=== PATIENT | male | born 1935 | race Caucasian/White ===

== ENCOUNTER → 2017-02-25 | Outpatient (CLI) | payer MEDICARE, OTHER ==
--- NOTE | 2017-03-16 15:34 | ENG ---
ELECTRONYSTAGMOGRAM REPORT INDICATION FOR EXAMINATION: A 81-year-old presented with intermittent vertigo. CALORIC TEST: No unilateral weakness. No directional preponderance. FFS: Negative. GAZE TEST: Negative. SINUSOIDAL TRACKING TEST: No breakups. OKN TEST: Negative. POSITIONAL NYSTAGMUS: SUPINE: Negative. RIGHT LATERAL: Negative. LEFT LATERAL: Negative. AKIL HALLPIKE TEST: Negative. CONCLUSION: Normal electronystagmogram. MMODL / IJN: [id number] /
== END | disposition home or self-care (01) ==
LOC: NEUROMAIN 10:36
PROVIDERS: ATTEND Psychiatry & Neurology Neurology
DX: H81.10 Benign paroxysmal vertigo, unspecified ear (principal)
CPT/HCPCS: 92537; 92540

== ENCOUNTER 2021-02-28 11:07 | Emergency (ER) | payer MEDICARE, OTHER ==
[2021-02-28 11:21] VITALS: RESP 18; TEMP 98
[2021-02-28 12:12] LABS: Basophils % (A) 0 %; Eosinophils # (A) 0.1 k/uL (0-0.7); Eosinophils % (A) 2 %; HCT 37.8 % (39.0-53.0); HGB 12.5 gm/dL (13.0-17.5); Lymphocytes # (A) 0.7 k/uL (1.0-4.8); Lymphocytes % (A) 12 %; MCH 30.9 pg (25.0-35.0); MCHC 33.1 g/dL (31.0-37.0); MCV 93.4 fL (80.0-100.0); Mean Platelet Volume 7.5; Monocytes # (A) 0.4 k/uL (0-1.0); Monocytes % (A) 7 %; Neutrophils # (A) 4.5 k/uL (1.3-7.7); Neutrophils % (A) 78 %; Platelet Count 235 k/uL (150-450); RBC 4.05 m/uL (4.30-5.90); RDW 14.3 % (11.5-15.5); WBC 5.7 k/uL (3.8-10.6)
[2021-02-28 12:33] LABS: INR 2.9 (<1.2); Partial Thromboplastin Time 34.1 sec (22.0-30.0); Prothrombin Time 27.7 sec (9.0-12.0)
[2021-02-28 12:39] LABS: ALT 14 U/L (4-49); AST 26 U/L (17-59); African American GFR (CKD) >90 (>60 ml/min/1.73 sqM); Albumin 3.8 g/dL (3.5-5.0); Alkaline Phosphatase 88 U/L (38-126); Anion Gap 7 mmol/L; Blood Urea Nitrogen 21 mg/dL (9-20); Calcium 9.1 mg/dL (8.4-10.2); Carbon Dioxide 26 mmol/L (22-30); Chloride 102 mmol/L (98-107); Glucose 106 mg/dL (74-99); Non-African American GFR(CKD) 90 (>60 ml/min/1.73 sqM); Potassium 4.5 mmol/L (3.5-5.1); Sodium 135 mmol/L (137-145); Total Bilirubin 0.3 mg/dL (0.2-1.3)
--- NOTE | 2021-02-28 13:32 | XR ---
AP pelvis HISTORY: Trauma and pain Single frontal view of the pelvis Bone mineralization is reduced. Joint spaces and alignment are maintained. Probable prostate seeds ar e present over the midline. Degenerative disc changes are present in the visualized spine. Vascular c alcifications are noted incidentally. IMPRESSION: No acute fracture or dislocation is evident. Follow-up as indicated.
--- NOTE | 2021-02-28 13:35 | XR ---
Lumbar spine HISTORY: Trauma and pain 3 views the lumbar spine There is a slight spinal curvature convex right centered at L3. There is multilevel spondylosis. Loss of disc height is greatest at L4-5 and L5-S1, there is associated vacuum phenomenon. Bone mineraliza tion is reduced. Sclerosis is present in the posterior elements of the lumbar spine consistent with f acet arthropathy. Probable interstitial changes present at the lung bases. Superior aspect of S1 show s some remodeling, questionable lucency seen anteriorly may be related to hypertrophic change, diffic ult to exclude a fracture. Lumbar vertebral bodies show preserved height. Atherosclerotic calcificati ons are present involving the aorta iliac distribution. IMPRESSION: Difficult to exclude fracture at S1 although findings may be due to hypertrophic changes. There are degenerative disc changes, osteopenia, facet arthropathy.
--- NOTE | 2021-02-28 13:43 | ED ---
Male Urogenital HPI - General Source: patient, family, RN notes reviewed Mode of arrival: wheelchair Limitations: no limitations <Herman Galloway - Last Filed: 02/28/21 15:18> <Mak Conway - Last Filed: 02/28/21 16:16> - General Chief complaint: Urogenital Stated complaint: Blood in urine Time Seen by Provider: 02/28/21 11:36 - History of Present Illness Initial comments: Patient is an 85-year-old male that presents to emergency department complaining of hematuria. He notes that he fell last night on his butt. Having some minor but pain and bruising to his chest. He notes that the only issue of concern was the blood in his urine. He notes he does have a history of prostate cancer and was unable to get in with Dr. Marrero. He denied any other symptoms or complaints at this time. He was otherwise a well-appearing 85-year-old male in no apparent distress or pain. He denied any chest pain shortness of breath headache nausea vomiting diarrhea constipation fever fatigue chills. (Barbara diana,Herman) - Related Data Home Medications Medication Instructions Recorded Confirmed Acetaminophen Tab [Tylenol Tab] 500 mg PO BID 02/28/21 02/28/21 Donepezil [Aricept] 10 mg PO HS 02/28/21 02/28/21 Gabapentin [Neurontin] 300 mg PO HS 02/28/21 02/28/21 Metoprolol Succinate [Toprol XL] 25 mg PO DAILY 02/28/21 02/28/21 Pravastatin Sodium [Pravachol] 10 mg PO HS 02/28/21 02/28/21 Tamsulosin HCl [Flomax] 0.4 mg PO DAILY 02/28/21 02/28/21 Warfarin [Coumadin] 5 mg PO SUMOTUTHSA 02/28/21 02/28/21 Warfarin [Coumadin] 7.5 mg PO WEFR 02/28/21 02/28/21 amLODIPine BESYLATE/BENAZEPRIL 1 cap PO DAILY 02/28/21 02/28/21 [amLODIPine BESYLATE/BENAZEPRIL 10-20 MG] hydroCHLOROthiazide [Hydrodiuril] 25 mg PO DAILY 02/28/21 02/28/21 Allergies Allergy/AdvReac Type Severity Reaction Status Date / Time No Known Allergies Allergy Verified 02/28/21 12:23 Review of Systems ROS Other: All systems not noted in ROS Statement are negative. <Herman Galloway - Last Filed: 02/28/21 15:18> ROS Other: All systems not noted in ROS Statement are negative. <Mak Conway - Last Filed: 02/28/21 16:16> ROS Statement: Those systems with pertinent positive or pertinent negative responses have been documented in the HPI. Past Medical History Past Medical History: Cancer, Hyperlipidemia Additional Past Medical History / Comment(s): prostate, cardiomyopathy, basal cell carcinoma History of Any Multi-Drug Resistant Organisms: None Reported Past Surgical History: Appendectomy Additional Past Surgical History / Comment(s): mitral valve, cochlear implant, diverticulitis, retinal detachment, cataract Past Psychological History: No Psychological Hx Reported Smoking Status: Never smoker Past Alcohol Use History: None Reported Past Drug Use History: None Reported <Herman Galloway - Last Filed: 02/28/21 15:18> General Exam Limitations: no limitations General appearance: alert, in no apparent distress Head exam: Present: atraumatic, normocephalic, normal inspection Eye exam: Present: normal appearance, PERRL, EOMI. Absent: scleral icterus, conjunctival injection, periorbital swelling Neck exam: Present: normal inspection Respiratory exam: Present: normal lung sounds bilaterally. Absent: respiratory distress, wheezes, rales, rhonchi, stridor Cardiovascular Exam: Present: regular rate, normal rhythm, normal heart sounds. Absent: systolic murmur, diastolic murmur, rubs, gallop, clicks GI/Abdominal exam: Present: soft, normal bowel sounds. Absent: distended, tenderness, guarding, rebound, rigid Extremities exam: Present: normal inspection, full ROM, normal capillary refill. Absent: tenderness, pedal edema, joint swelling, calf tenderness Back exam: Present: normal inspection, full ROM Neurological exam: Present: alert, oriented X3 Psychiatric exam: Present: normal affect, normal mood Skin exam: Present: warm, dry, intact, normal color. Absent: rash <Herman Galloway - Last Filed: 02/28/21 15:18> Course Vital Signs 02/28/21 02/28/21 02/28/21 11:14 12:21 13:00 Temperature 98 F Pulse Rate 62 65 65 Respiratory 18 18 18 Rate Blood Pressure 109/64 126/86 126/86 O2 Sat by Pulse 97 95 95 Oximetry Medical Decision Making - Lab Data Result diagrams: 02/28/21 11:51 02/28/21 11:51 - Radiology Data Radiology results: report reviewed, image reviewed <Herman Galloway - Last Filed: 02/28/21 15:18> - Lab Data Result diagrams: 02/28/21 11:51 02/28/21 11:51 <Mak Conway - Last Filed: 02/28/21 16:16> - Medical Decision Making 85-year-old male that fell last night after losing his balance complaining of minor hematuria, history of prostate cancer. Labs, lumbar spine x-ray, x-ray of pelvis, ordered. Labs unremarkable. Urinalysis shows large quantity red blood cells greater than 182. CT of the sacrum ordered. (Herman Galloway) Patient care is signed off to me by PASCUAL Garrison. I personally evaluated the patient, patient presented for hematuria. States he fell several days ago and was concerned this could be due to the fall. States he has pain near the left lumbar region but appears to be rather minimal. Seems to be exacerbated with movement. He denies any increased urgency or frequency or dysuria. States she has difficulty with balance due to arthritic changes in the spine. He sees Dr. Green for his lumbar issues along with a chiropractor. He denies any penile discharge, testicular swelling or abdominal pain. Denies any fevers or chills. Patient is on Coumadin and he has history of prostate cancer. He sees on regular basis. No significant tenderness over the sacrum or lower lumbar region to palpation. CBC reveals mild anemia with a hemoglobin of 12. INR is 2.9. Renal function within normal limits. UA shows gross hematuria. 19 white blood cells. No leukocyte esterase reported. Urine culture pending. Pelvic x-rays unremarkable. Lumbar spine x-ray reveals the possibility for an S1 fracture although it may be difficult to exclude. CT of the sacrum was obtained which shows a subacute versus a healing old sacral fracture. Clinically the patient does not have any significant tenderness over the suspect the region of a fracture. I advised the patient to follow-up with his urologist regarding the hematuria. Return parameters with low discussed with patient and the were understanding and agreeable. Case discussed with (Christos Conwayo) - Lab Data Lab Results 02/28/21 02/28/21 02/28/21 Range/Units 11:51 11:51 11:51 WBC 5.7 (3.8-10.6) k/uL RBC 4.05 L (4.30-5.90) m/uL Hgb 12.5 L (13.0-17.5) gm/dL Hct 37.8 L (39.0-53.0) % MCV 93.4 (80.0-100.0) fL MCH 30.9 (25.0-35.0) pg MCHC 33.1 (31.0-37.0) g/dL RDW 14.3 (11.5-15.5) % Plt Count 235 (150-450) k/uL MPV 7.5 Neutrophils % 78 % Lymphocytes % 12 % Monocytes % 7 % Eosinophils % 2 % Basophils % 0 % Neutrophils # 4.5 (1.3-7.7) k/uL Lymphocytes # 0.7 L (1.0-4.8) k/uL Monocytes # 0.4 (0-1.0) k/uL Eosinophils # 0.1 (0-0.7) k/uL Basophils # 0.0 (0-0.2) k/uL PT 27.7 H (9.0-12.0) sec INR 2.9 H (<1.2) APTT 34.1 H (22.0-30.0) sec Sodium (137-145) mmol/L Potassium (3.5-5.1) mmol/L Chloride (98-107) mmol/L Carbon Dioxide (22-30) mmol/L Anion Gap mmol/L BUN (9-20) mg/dL Creatinine (0.66-1.25) mg/dL Est GFR (CKD-EPI)AfAm (>60 ml/min/1.73 sqM) Est GFR (CKD-EPI)NonAf (>60 ml/min/1.73 sqM) Glucose (74-99) mg/dL Calcium (8.4-10.2) mg/dL Total Bilirubin (0.2-1.3) mg/dL AST (17-59) U/L ALT (4-49) U/L Alkaline Phosphatase (38-126) U/L Total Protein (6.3-8.2) g/dL Albumin (3.5-5.0) g/dL Urine Color Red Urine Appearance Bloody (Clear) Urine RBC >182 H (0-5) /hpf Urine WBC 19 H (0-5) /hpf 02/28/21 Range/Units 11:51 WBC (3.8-10.6) k/uL RBC (4.30-5.90) m/uL Hgb (13.0-17.5) gm/dL Hct (39.0-53.0) % MCV (80.0-100.0) fL MCH (25.0-35.0) pg MCHC (31.0-37.0) g/dL RDW (11.5-15.5) % Plt Count (150-450) k/uL MPV Neutrophils % % Lymphocytes % % Monocytes % % Eosinophils % % Basophils % % Neutrophils # (1.3-7.7) k/uL Lymphocytes # (1.0-4.8) k/uL Monocytes # (0-1.0) k/uL Eosinophils # (0-0.7) k/uL Basophils # (0-0.2) k/uL PT (9.0-12.0) sec INR (<1.2) APTT (22.0-30.0) sec Sodium 135 L (137-145) mmol/L Potassium 4.5 (3.5-5.1) mmol/L Chloride 102 (98-107) mmol/L Carbon Dioxide 26 (22-30) mmol/L Anion Gap 7 mmol/L BUN 21 H (9-20) mg/dL Creatinine 0.66 (0.66-1.25) mg/dL Est GFR (CKD-EPI)AfAm >90 (>60 ml/min/1.73 sqM) Est GFR (CKD-EPI)NonAf 90 (>60 ml/min/1.73 sqM) Glucose 106 H (74-99) mg/dL Calcium 9.1 (8.4-10.2) mg/dL Total Bilirubin 0.3 (0.2-1.3) mg/dL AST 26 (17-59) U/L ALT 14 (4-49) U/L Alkaline Phosphatase 88 (38-126) U/L Total Protein 6.0 L (6.3-8.2) g/dL Albumin 3.8 (3.5-5.0) g/dL Urine Color Urine Appearance (Clear) Urine RBC (0-5) /hpf Urine WBC (0-5) /hpf - Radiology Data Lumbar spine x-ray: Difficult to exclude fracture at S1 although findings may be due to hypertrophic changes. There are degenerative disc changes, osteopenia facet arthropathy. Pelvis x-ray: No acute fracture dislocation is evident. Follow-up as indicated. (Herman Galloway) Disposition <Herman Galloway - Last Filed: 02/28/21 15:18> Is patient prescribed a controlled substance at d/c from ED?: No Time of Disposition: 16:16 <Mak Conway - Last Filed: 02/28/21 16:16> Clinical Impression: Hematuria, Fall Disposition: HOME SELF-CARE Condition: Stable Instructions (If sedation given, give patient instructions): Hematuria (ED) Additional Instructions: Follow-up with Dr. Cormier. Return to emergency department if symptoms worsen. Referrals: Marie Blevins MD [Primary Care Provider] - 1-2 days
[2021-02-28 14:17] LABS: RBC,Urine >182 /hpf (0-5); WBC,Urine 19 /hpf (0-5)
[2021-02-28 14:18] LABS: Appearance,Urine Bloody (Clear); Color,Urine Red
--- NOTE | 2021-02-28 15:27 | CT ---
EXAMINATION TYPE: CT sacrum wo con DATE OF EXAM: 02/28/2021 COMPARISON: Lumbar spine x-ray and pelvic x-ray earlier today. CT abdomen and pelvis 2014. HISTORY: Fall couple days ago, hematuria. CT DLP: 307.2 mGycm Automated exposure control for dose reduction was used. FINDINGS: There is irregular linear lucency with more prominent sclerosis through the upper sacrum greater left of midline with some right-sided involvement. There is some impaction and slight posterior displacem ent of the distal sacrum at the S1 level at site of fracture seen best on sagittal images. Uncertain if this is related to trauma or fall injury a few days ago versus slightly older injury as there is m ore prominent sclerosis than suspected for injury in last few days. Sacroiliac joints are maintained. Remainder visualized pelvis is intact. Sigmoid colonic diverticulos is is present. Mild to moderately distended bladder is seen with left-sided diverticulum coronal imag e 1. There are gold therapy seeds now present in the prostate gland. IMPRESSION: Suspected subacute or healing S1 sacral fracture possible insufficiency fracture or relat ed to trauma suspected a few weeks in age.
[2021-02-28 16:52] VITALS: BP 127/73; PULSE 69
== END 2021-02-28 16:55 | disposition home or self-care (01) ==
LOC: EC 11:07
DX: R31.9 Hematuria, unspecified (principal); R07.9 Chest pain, unspecified; E78.5 Hyperlipidemia, unspecified; Z79.899 Other long term (current) drug therapy; W01.0XXA Fall on same level from slipping, tripping and stumbling without subsequent striking against object, initial encounter
CPT/HCPCS: 36415; 72100; 72170; 72192; 80053; 81001; 85025; 85610; 85730; 87086; 99284

== ENCOUNTER → 2021-03-22 | Outpatient (CLI) | payer MEDICARE, OTHER ==
[2021-03-22 16:41] LABS: African American GFR (CKD) >90 (>60 ml/min/1.73 sqM); Blood Urea Nitrogen 18 mg/dL (9-20); Non-African American GFR(CKD) 90 (>60 ml/min/1.73 sqM)
--- NOTE | 2021-03-23 07:18 | CT ---
EXAMINATION TYPE: CT abdomen pelvis w con DATE OF EXAM: 03/22/2021 COMPARISON: 01/09/2015 HISTORY: Recent fall, hematuria. Hx prostate ca CT DLP: 759.30 mGycm CONTRAST: CT scan of the abdomen and pelvis is performed with Oral Contrast and with IV Contrast, patient injec altagracia with 100 mL of Isovue 300. FINDINGS: LUNG BASES-: No visible nodule. No infiltrate. There is evidence of cardiomegaly. LIVER/GB: No calcified gallstones. No space occupying hepatic lesion. Biliary tree is of normal ca liber. PANCREAS: No inflammation. No distinct mass. SPLEEN: No splenic enlargement. No lesion seen. ADRENALS: No nodule. No thickening. KIDNEYS/BLADDER: No traumatic injury visualized to the kidneys. No hydronephrosis. No nephrolithias is. No distinct renal mass. Mild urinary bladder wall thickening could reflect underlying cystitis. Anterolateral and to the left diverticulum of the urinary bladder. BOWEL: Normal appendix. Normal bowel caliber. No inflammation. GENITAL ORGANS: Prostate gland enlargement. LYMPH NODES: No greater than 1cm abdominal or pelvic lymph nodes are appreciated. AORTA: No significant abnormality. OSSEOUS STRUCTURES: No significant abnormality is seen. OTHER: No significant additional abnormality is seen. IMPRESSION: 1. No traumatic injury visualized to the kidneys. 2. Mild urinary bladder wall thickening could reflect underlying cystitis. Anterolateral and to the l eft diverticulum of the urinary bladder.
== END | disposition home or self-care (01) ==
LOC: RADCTMAIN 14:59
PROVIDERS: ATTEND Urology
DX: N32.3 Diverticulum of bladder (principal)
CPT/HCPCS: 82565; 84520; 74177; 36415; Q9967

== ENCOUNTER → 2021-11-28 | Outpatient (CLI) | payer MEDICARE, OTHER ==
[2021-11-28 11:21] VITALS: BP 142/70; PULSE 51; RESP 18; TEMP 97.8
--- NOTE | 2021-11-28 11:27 | P.CON ---
Consult Note - . Consult date: 11/28/21 Assessment/Plan:: HISTORY OF PRESENT ILLNESS: 86 yr old male as a referral from Dr. Jose presents today with severe and chronic lower back pain 10 years secondary to L5-S1 vacuum phenomenon and DDD for evaluation. He states his pain is currently at 1 out of 10 in intensity, localized to the lower aspect of his lumbar spine, sharp, shooting, achy in character with radiation of pain into the hips bilaterally, lower extremities bilaterally and feet bilaterally. In is provoked with rapid twisting and bending. Pain is relieved with medications (Aleve, Tylenol OTC), heat, physical therapy in October 2021, chiropractic treatments once a week, daily home exercise regimen, use of a quad cane for ambulation, repositioning and rest. Past Medical History: Prostate Cancer, BCC, Hyperlipidemia, Cardiomyopathy, Hx of Diverticulitis Past Surgical History: Appendectomy, MV Replacement, Cochlear implant, Retinal detachment, Cataract resection Social History: Never smoker, No ETOH abuse, No illicit drug use Family History: Non contributory All: NKDA Meds: See list REVIEW OF ORGAN SYSTEMS: CONSTITUTIONAL: No fevers or chills. No recent weight loss. HEENT: No visual acuity loss, eye pain, difficulties with hearing. No nosebleeds. No difficulty swallowing. RESPIRATORY: Denies any troubles with breathing or dyspnea on exertion. CARDIOVASCULAR: Denies any chest pain, palpitations, or recent heart attacks. GASTROINTESTINAL: Denies fatty food intolerance. Has change in bowel habits and gas bloat. GENITOURINARY: Denies any blood in urine. Has increased urinary frequency. NEUROLOGICAL: + numbness and tingling along the distal extremities. No seizure disorders or headaches. MUSCULOSKELETAL: + back pain SKIN: No skin cancer. No rash. PSYCHIATRIC: Denies current depression or suicidal thoughts. ENDOCRINE: Denies current thyroid disorders. Denies any blood sugar glucose intolerance. HEME/LYMPHATIC: Denies any lumps and bumps around the neck. History of deep venous thrombosis. ALLERGY/IMMUNOLOGY: No immunoglobulin therapy. No immune deficiencies. BREAST: Denies current breast lumps, pain or nipple discharge. Physical Examinations : Constitutional : Cooperative , not in acute distress . HEENT: Neck supple. No Lymphadenopathy. Normal thyroid size . Eyes no ptosis , no icterus, no photophobia . Hearing intact. Normal oropharynx. No Thrush. Respiratory : Chest clear to auscultations bilaterally. No wheezing. No rhonchi. Cardiovascular : Regular rate and rhythm , S1 / S2. No S3 . No S4. Gastrointestinal : Abdomen soft. No tenderness. Bowel sounds x 4. No organomegaly . Genitourinary : Deferred. Neurologic : Cranial nerve II to XII intact. No focal neurological deficits. Psychiatric : alert & oriented x 3. Matching mood & appropriate affect. Judgment & insight intact. Lymphatic No Lymphadenopathy. Musculoskeletal : Cervical Spine Motor strength in the deltoid and biceps: Normal right side. Normal Left side Motor strength biceps and the wrist extensors: Normal right side . Normal left side Motor strength in the triceps muscle: Normal right side. Normal left side Deep tendon reflexes: Normal at the biceps. Normal at Brachioradialis. Normal at triceps Cervical facet loading test: positive bilaterally Spurling test: positive bilaterally Neck distraction test: positive bilaterally Emanuel sign: positive bilaterally Lumbar spine Motor strength lower extremities ,thigh and legs 5/5 Right side , 5/5 Left side Deep tendon reflexes : Normal Knee Jerk. Normal Ankle Jerk Vertebral body tenderness over L5 with deep palpation while hyperextended Lumbar facet Loading Test: positive Right / positive Left Range of motion of the lumbar spine Flexion 30 degrees, extension 10 degrees Straight Leg Raise test: Left/ Right positive at degree Brayden test: positive right / positive left. Severe tenderness over the Sacroiliac joint on the Right / Left sides Gaenslen test: positive bilaterally Seated flexion test: positive bilaterally. Sacral spine : Severe tenderness over the Sacroiliac joint: right side / left side Range of motion: Flexion of the lumbar spine <60 degrees Range of motion: Extension of the lumbar spine <20 degrees Gaenslen's Test positive Victor Hugo's Test positive Brayden test: positive right side / left side Thigh Thrust Test Sacral Thrust Test Imaging: CT without contrast of the Lumbar spine from 07/09/21 reviewed Assessment/ Plan : Lumbar DDD Recommendation of LESI L5-S1. May need a series of injections, up to 3 within a six-month period for optimal pain relief. Risks, benefits of procedure discussed and patient verbalized understanding. Denies medical history of diabetes. Admits to Coumadin use. Medical clearance letter sent to Dr. Lan. All questions answered. I have spent greater than 50 minutes on patient care today. Dr Goldberg was available by phone for the evaluation of this patient. The time was used to review the medical records including relevant urine studies and Prescription history (MAPs), review of the available imaging, evaluation and examination of the patient, coordination of care with the medical staff and if applicable referring physicians, as well as creation of the medical record PQRS Measure Charge Sheet Mode of Arrival: Ambulatory, Cane - Pain Location Lower Back Non-Pharmacological Interventions: Chiropractic Treatment, Heat, Home Exercise, Inactivity, Physical Therapy, Position/Reposition, Stretching Pharmacological Interventions: PRN Medication PQRS Narrative: Blood Pressure 142/70 Pain Intensity [Lower Back] 1 Scale Used Numeric (1 - 10) Hx Alcohol Use (MH) No Home Medications: Ambulatory Orders Donepezil [Aricept] 10 mg PO HS 02/28/21 Gabapentin [Neurontin] 300 mg PO HS 02/28/21 Metoprolol Succinate [Toprol XL] 25 mg PO DAILY 02/28/21 Pravastatin Sodium [Pravachol] 10 mg PO HS 02/28/21 Tamsulosin HCl [Flomax] 0.4 mg PO DAILY 02/28/21 Warfarin [Coumadin] 5 mg PO SUMOTUWEFRSA 02/28/21 Warfarin [Coumadin] 10 mg PO TH 02/28/21 amLODIPine BESYLATE/BENAZEPRIL [amLODIPine BESYLATE/BENAZEPRIL 10-20 MG] 1 cap PO DAILY 02/28/21 hydroCHLOROthiazide [Hydrodiuril] 25 mg PO DAILY 02/28/21
== END ==
LOC: PNWHC3 10:34
PROVIDERS: ATTEND Specialist
DX: M43.16 Spondylolisthesis, lumbar region (principal); M51.36 Other intervertebral disc degeneration, lumbar region; M51.16 Intervertebral disc disorders with radiculopathy, lumbar region; E78.5 Hyperlipidemia, unspecified
CPT/HCPCS: 99211

== ENCOUNTER 2022-01-02 11:54 | Day surgery (SDC) | payer MEDICARE, OTHER ==
[2021-12-27 15:51] VITALS: BMI 25.1
[2022-01-02 13:05] VITALS: TEMP 97.8
[2022-01-02] MEDS ORDERED: LACTATED RINGERS 1,000 ML IV ONE (13:05)
[2022-01-02 13:42] LABS: INR 1.1 (<1.2); Prothrombin Time 11.7 sec (9.0-12.0)
[2022-01-02] MEDS ORDERED: IOPAMIDOL M200 10 ML VIAL ONE (13:45)
[2022-01-02] MEDS ORDERED: methylPREDNISolone ACETATE 40 MG/ML 1 ML VIAL ONE (13:45)
[2022-01-02] MEDS ORDERED: fentaNYL (PF) 50 MCG/ML 2 ML AMP ONE (13:45)
[2022-01-02] MEDS ORDERED: MIDAZOLAM 2 MG/2 ML VIAL ONE (13:45)
--- NOTE | 2022-01-02 13:56 | P.PCN ---
Date of Procedure: 01/02/22 Description of Procedure: Procedure: 1. L5-S1 Epidural steroid injection under fluoroscopic guidance # 1 , 2. Lumbar epidurogram PREOPERATIVE DIAGNOSIS: Lumbar degenerative disc disease, and Lumbar radiculopathy. POSTOPERATIVE DIAGNOSIS: Lumbar degenerative disc disease, and Lumbar radiculopathy. SURGEON: Shola Willard ANESTHESIA: Local with 1% lidocaine, and IV sedation as per anesthesia record EBL: None. Specimen removed: None Fluoroscopic image: saved to electronic medical records PROCEDURE INDICATION: The patient had history of Lumbar degenerative disc disease and Lumbar radiculopathy. Failed to conservative therapy. Presented for epidural steroid injection. PROCEDURE DESCRIPTION: The patient was seen and identified in the preoperative area. Risks, benefits, complications, and alternatives were discussed with the patient. The patient agreed to proceed with the procedure and signed the consent. IV was started, and vital signs were stable. Patient was taken to the procedure area, and time out was completed. The patient was placed in the prone position on procedure table and a pillow was placed under the abdomen to reduce lumbar lordosis. The lumbosacral area was prepped and draped in the usual sterile fashion. Critical pause was taken. Vital signs were closely monitored during the procedure. Using anterior-posterior fluoroscopy, the L5-S1 interlaminar space was identified, and skin and deeper tissues were localized with 1% lidocaine. Using anterior-posterior fluoroscopy, lateral fluoroscopy, and [id number] technique, a 20 gauge 3.5 Tuohy epidural needle entered the epidural space. After negative aspiration of CSF and blood with no paresthesias, 1 ml of [id number] contrast dye was injected and an excellent epidurogram was seen. Again after negative aspiration of CSF and blood with no paresthesias, 7 mL of block solution was injected into the epidural space. Block solution contained 40 mg of Depo-Medrol, and 6 mL of preservative-free normal saline. Needle was withdrawn intact, skin was cleansed, and bandages were applied. COMPLICATIONS: None. DISPOSITION / PLANS: The patient was placed in a supine position and transferred to the recovery area in a stable condition for observation. Patient was discharged from the recovery room after meeting discharge criteria. Home discharge instructions given to the patient by the staff. The patient was reexamined prior to discharge. The patient will schedule a follow up in the clinic in 4 weeks.
[2022-01-02] MEDS ORDERED: LACTATED RINGERS 1,000 ML IV SCH (14:00)
[2022-01-02] MEDS ORDERED: IV FLUID CONTINUATION 1,000 ML IV ONE (14:00)
[2022-01-02 14:19] VITALS: BP 124/71; PULSE 55; RESP 17
--- NOTE | 2022-01-02 14:55 | FL ---
Fluoroscopy HISTORY: Pain 6 seconds fluoroscopy time supplied to the referring clinician. 2 intraoperative C-arm images docume nt the procedure. See dictated report from anesthesia.
== END 2022-01-02 14:30 | disposition home or self-care (01) ==
LOC: ORPAIN 11:54
DX: M51.16 Intervertebral disc disorders with radiculopathy, lumbar region (principal)
CPT/HCPCS: 85610; 62323; J2250; J1030; J3010; Q9966

== ENCOUNTER → 2022-01-20 | Outpatient (CLI) | payer MEDICARE, OTHER ==
[2022-01-20 11:06] VITALS: BP 128/67; PULSE 63; RESP 16; TEMP 97.8
--- NOTE | 2022-01-20 12:45 | P.PAINPG ---
PQRS Measure Charge Sheet Comment: A 86 yr old male with a history of severe and chronic low back pain secondary to lumbar degenerative disc diseases and lumbar spondylosis with facet arthropathy presents today for evaluation s/p LESI L5-S1 #1. Pt states he received 85% pain relief x 2 weeks s/p procedure. Pain level is currently at 1-2 /10 in intensity, constant, sore in character w radiation of tingling to the feet BL. Pain is provoked by standing for periods of 15 min or more, or in AM, or by bedtime. Pain is alleviated with medications (Aleve OTC, Neurontin), injections, Pt which ended in November 2021, chiropractic treatments which ended in August 2021, use of a cane for ambulation, repositioning and rest. Interventional pain procedures completed include LESI L5-S1 x 1 Patient is currently on Aleve OTC, Neurontin by Dr Jim Patient denies any side effects of the medication(s), denies excessive drowsiness or sleepiness, denies suicidal ideation and reports that the current pain medication is helping to control the pain and improve activities of daily living. Patient denies any motor or sensory deficits. Patient denies any fever or night sweats, denies any change in the bowel movements or urination. Physical Examination: -Constitutional: Cooperative. Not in acute distress . - Neurologic: Cranial nerve II to XII intact. No focal neurological deficits. - Psychatric: Alert & oriented x 3. Matching mood & appropriate affect. Judgment and insight intact. - Musculoskeletal: Cervical spine: Muscle bulk/ tone/ strength in the bilateral upper extremities normal Vertebral body tenderness to palpation over Spurling test positive Distraction test positive Facet loading test positive Thoracic spine Muscle bulk / tone/ strength in the bilateral paraspinal muscles normal Vertebral body tender to palpation over Facet loading test positive Lumbar spine: Motor bulk/ tone/ strength lower extremities , thigh and legs : 5/5 Deep tendon reflexes : Normal Knee Jerk. Normal Ankle Jerk . Vertebral body tenderness to palpation over L5 Lumbar Facet Loading Test positive Straight Leg Raise: positive at 30 degrees right side/ left side Gaenslen's Test positive Sacral spine : Severe tenderness over the Sacroiliac joint: right side / left side Range of motion: Flexion of the lumbar spine <60 degrees Range of motion: Extension of the lumbar spine <20 degrees Gaenslen's Test positive Victor Hugo's Test positive Brayden test: positive right side / left side Thigh Thrust Test Sacral Thrust Test Assessment and plan: Chronic low back pain secondary to lumbar degenerative disc disease , lumbar spondylosis with facet arthropathy without myelopathy Recommendation of ADRIAN L5-S1 #2. May need a series of injections, up to 3 within a 6 mo period, for optimal pain relief. Risks, benefits of procedure discussed and pt verbalized understanding. Denies anticoagulant use or medical history of diabetes. All patient questions answered MAPS reviewed and it was appropriate. I have spent less than 30 minutes on patient care today. Dr Goldberg was available by phone for the evaluation of this patient. The time was used to review the medical records including relevant urine studies and Prescription history (MAPs), review of the available imaging, evaluation and examination of the patient, coordination of care with the medical staff and if applicable referring physicians, as well as creation of the medical record PQRS Narrative: Hx Alcohol Use (MH) No Home Medications: Ambulatory Orders Donepezil [Aricept] 10 mg PO HS 02/28/21 Gabapentin [Neurontin] 300 mg PO HS 02/28/21 Metoprolol Succinate [Toprol XL] 25 mg PO DAILY 02/28/21 Pravastatin Sodium [Pravachol] 10 mg PO HS 02/28/21 Tamsulosin HCl [Flomax] 0.4 mg PO DAILY 02/28/21 Warfarin [Coumadin] 5 mg PO SUMOTUFRSA 02/28/21 Warfarin [Coumadin] 10 mg PO WETH 02/28/21 amLODIPine BESYLATE/BENAZEPRIL [amLODIPine BESYLATE/BENAZEPRIL 10-20 MG] 1 cap PO DAILY 02/28/21 hydroCHLOROthiazide [Hydrodiuril] 25 mg PO DAILY 02/28/21 Controlled Substance Measures - Controlled Substance Measures Is patient prescribed a controlled substance at discharge?: No
== END | disposition home or self-care (01) ==
LOC: PNWHC3 10:24
PROVIDERS: ATTEND Specialist
DX: M47.896 Other spondylosis, lumbar region (principal); M51.36 Other intervertebral disc degeneration, lumbar region
CPT/HCPCS: 99211

== ENCOUNTER 2022-03-06 11:19 | Day surgery (SDC) | payer MEDICARE, OTHER ==
[~2022-03-06 11:19] MED LIST: LACTATED RINGERS 1,000 ML IV SCH; LIDOCAINE 1% (10MG/ML) FOR IV START INTRADERMA PRN
[2022-03-06 11:58] VITALS: BP 123/62; PULSE 91; RESP 14
--- NOTE | 2022-03-06 13:21 | P.PN ---
Progress Note - Text Progress Note Date: 03/06/22 This is 86 years old male with a chronic history of severe low back pain, he is diagnosed with lumbar degenerative disc disease and lumbar radiculopathy, he was scheduled to have lumbar epidural steroid injections under fluoroscopy today, in the preop holding area we check the PT/INR, it showed that PT is 20 and INR is 2, patient reported that he stopped taking Coumadin for the last 4 days, but the INR is still above the recommended level to do the interventional pain procedure, that is scheduled for today for this reason the procedure will be canceled today and patient will be rescheduled in the next few days will check the PT/INR before the procedure, and it has to be a below 1.5
== END 2022-03-06 13:33 | disposition home or self-care (01) ==
LOC: ORPAIN 11:19
PROVIDERS: ATTEND Specialist
DX: M47.817 Spondylosis without myelopathy or radiculopathy, lumbosacral region (principal)
CPT/HCPCS: 85610

== ENCOUNTER → 2022-06-12 | Outpatient (CLI) | payer MEDICARE, OTHER ==
[2022-06-12 14:59] LABS: INR 2.4 (<1.2); Prothrombin Time 23.6 sec (9.0-12.0)
== END | disposition home or self-care (01) ==
LOC: LABWHC1 12:58
PROVIDERS: ATTEND Family Medicine
DX: Z79.1 Long term (current) use of non-steroidal anti-inflammatories (NSAID) (principal)
CPT/HCPCS: 36415; 85610; 85730

== ENCOUNTER → 2022-10-17 | Outpatient (CLI) | payer MEDICARE, OTHER ==
--- NOTE | 2022-10-20 05:20 | PE ---
EXAMINATION TYPE: PET CT fusion skull to thigh DATE OF EXAM: 10/17/2022 COMPARISON: CT abdomen and pelvis March 22, 2021 HISTORY: Prostate cancer TECHNIQUE: Following the intravenous administration of 4.67 mCi of gallium 68 Illucix, whole body im ages are performed from the skull base to the midthigh. Images are reviewed on the computer in the c oronal, axial, and sagittal planes. Reconstructed rotating images are created on independent worksta tion and reviewed on the computer. A localization and attenuation correction CT is performed in con junction with the PET scan. SCAN: None. FINDINGS: SKULL BASE AND NECK: Expected uptake in the parotid and submandibular glands. No suspicious hypermet abolic uptake. CHEST, MEDIASTINUM, AND HILAR REGION: No abnormal hypermetabolic uptake. ABDOMEN AND PELVIS: Normal renal uptake. Normal liver and spleen uptake. Nonspecific bowel uptake. Abnormal uptake in the aortocaval lymph node before the iliac bifurcation measuring 7 mm axial image 169. Additional suspicious subcentimeter lymph nodes at this level are present some with abnormal up take before the bifurcation. Abnormal uptake in the presacral lymph nodes axial images 190 and 197, lymph node on 190 measures 11 x 8 mm. Abnormal uptake in the suspicious right perirectal lymph node a xial image 212 measuring 1.9 x 1.4 cm. OSSEOUS STRUCTURES: No abnormal radiotracer uptake. OTHER CT: Greater than 1 cm low dense right thyroid nodule is felt present. Thyroid ultrasound follow -up advised that this is not known finding. Exaggerated spinal curvature. Overlying sternal wires from CABG procedure are noted. Enlarged pulmona ry arteries consistent with underlying pulmonary artery hypertension. Mild/moderate biatrial dilatati on. Diverticula in the colon greatest involving the sigmoid colon. Small fat-containing right inguinal he rnia. There are 3 gold therapy seeds scattered throughout the prostate gland. Facet arthropathy in th e lower lumbar spine is seen. IMPRESSION: Abnormal retroperitoneal adenopathy in the lower abdomen and pelvis is confirmed as detai led above.
== END | disposition home or self-care (01) ==
LOC: RADPETMAIN 13:19
PROVIDERS: ATTEND Urology
DX: C61 Malignant neoplasm of prostate (principal); R59.0 Localized enlarged lymph nodes
CPT/HCPCS: 78815; A9596

== ENCOUNTER → 2022-12-09 | Outpatient (CLI) | payer MEDICARE, OTHER ==
--- NOTE | 2022-12-09 14:31 | US ---
EXAMINATION TYPE: US thyroid st tissue head/neck DATE OF EXAM: 12/09/2022 COMPARISON: abn CT CLINICAL INDICATION: Male, 87 years old with history of E04.1 THYROID NODULE; recent abnormal ct, no prev thyroid imaging, h/o mets prostate cancer GLAND SIZE: Right Lobe: 5.5 x 2.3 x 2.4 cm Overall Parenchyma: heterogenous Left Lobe: 3.9 x 1.2 x 1.5 cm Overall Parenchyma: heterogenous Isthmus Thickness: 0.3 cm Vascular bilateral thyroid tissue. NODULES RIGHT: # of nodules measured on right: 1 1. 3.4 X 1.8 x 2.5 cm, lower mid, solid or almost completely solid, hypoechoic nodule, which is wid er than tall, with smooth margins, without echogenic foci. TR 4. Prior size: no previous imaging LEFT: # of nodules measured on left: 3 1. 0.7 X 0.3 x 0.5 cm, upper mid, cystic or almost completely cystic, hypoechoic nodule, which is w ider than tall, with smooth margins, without echogenic foci. TR 2. Prior size: no previous imaging 2. 0.7 X 0.4 x 0.5 cm, mid lateral, solid or almost completely solid, hypoechoic nodule, which is wider than tall, with smooth margins, without echogenic foci. TR 4. Prior size: no previous imaging 3. 0.9 X 0.4 x 0.7 cm, lower mid, cystic or almost completely cystic, hypoechoic nodule, which is w ider than tall, with smooth margins, without echogenic foci. TR 2. Prior size: no previous imaging ISTHMUS: # of nodules measured in the isthmus: 0 0 Bilateral neck scanned, no evidence of lymphadenopathy. IMPRESSION: Multinodular thyroid gland with dominant right thyroid lobe TR 4 nodule measuring up to 3.4 cm. Fine- needle aspiration is recommended.
== END | disposition home or self-care (01) ==
LOC: RADUSWWP 13:34
PROVIDERS: ATTEND Urology
DX: C61 Malignant neoplasm of prostate (principal); E04.2 Nontoxic multinodular goiter
CPT/HCPCS: 76536

== ENCOUNTER → 2022-12-15 | Outpatient (CLI) | payer MEDICARE, OTHER | END | disposition home or self-care (01) | LOC: LABWHC1 11:13 | PROVIDERS: ATTEND Family Medicine | DX: Z53.9 Procedure and treatment not carried out, unspecified reason (principal) ==

== ENCOUNTER → 2023-04-24 | Outpatient (CLI) | payer MEDICARE, OTHER ==
[2023-04-25 00:54] LABS: Blood Urea Nitrogen 11.7 mg/dL (9.0-27.0); Calcium 9.4 mg/dL (8.7-10.3); Carbon Dioxide 24.7 mmol/L (21.6-31.8); Chloride 109 mmol/L (96-109); Glucose 129 mg/dL (70-110); Potassium 3.6 mmol/L (3.5-5.5); Sodium 146 mmol/L (135-145)
== END | disposition home or self-care (01) ==
LOC: LABWHC1 13:57
PROVIDERS: ATTEND Family Medicine
DX: E83.51 Hypocalcemia (principal)
CPT/HCPCS: 36415; 80048

== ENCOUNTER 2023-05-01 17:07 | Emergency (ER) | payer MEDICARE ==
[2023-05-01 18:04] VITALS: RESP 18; TEMP 98.4
[2023-05-01 18:45] LABS: Basophils % (A) 0 %; Eosinophils # (A) 0.1 k/uL (0-0.7); Eosinophils % (A) 1 %; HCT 38.7 % (39.0-53.0); HGB 13.5 gm/dL (13.0-17.5); Lymphocytes % (A) 14 %; MCH 33.6 pg (25.0-35.0); MCV 96.2 fL (80.0-100.0); Mean Platelet Volume 8.1; Monocytes # (A) 0.4 k/uL (0-1.0); Monocytes % (A) 6 %; Neutrophils # (A) 5.4 k/uL (1.3-7.7); Neutrophils % (A) 78 %; Platelet Count 226 k/uL (150-450); RBC 4.03 m/uL (4.30-5.90); RDW 13.4 % (11.5-15.5); WBC 6.9 k/uL (3.8-10.6)
[2023-05-01 18:58] LABS: INR 2.2 (<1.2); Partial Thromboplastin Time 29.1 sec (22.0-30.0); Prothrombin Time 21.8 sec (10.0-12.5)
[2023-05-01 19:01] LABS: ALT 14 U/L (4-49); African American GFR (CKD) >90 (>60 ml/min/1.73 sqM); Albumin 3.7 g/dL (3.5-5.0); Anion Gap 12 mmol/L; Blood Urea Nitrogen 15 mg/dL (9-20); Calcium 9.1 mg/dL (8.4-10.2); Carbon Dioxide 20 mmol/L (22-30); Chloride 111 mmol/L (98-107); Glucose 125 mg/dL (74-99); Non-African American GFR(CKD) 85 (>60 ml/min/1.73 sqM); Sodium 143 mmol/L (137-145); Total Bilirubin 1.2 mg/dL (0.2-1.3); Total Protein 6.4 g/dL (6.3-8.2)
--- NOTE | 2023-05-01 19:03 | ED ---
GI Bleed HPI - General Chief complaint: GI Bleed Stated complaint: blood in stool Time Seen by Provider: 05/01/23 18:13 Source: patient Mode of arrival: ambulatory Limitations: no limitations - History of Present Illness Initial comments: This patient is an 87-year-old man who presents with complaint that he has passed small amount of blood with bowel movement last night and then again this morning. The patient does take Coumadin for atrial fibrillation. He states that last week he had a few days where he was having hematuria at that resolved. Patient denies symptoms of anemia, he is not having chest pain, dyspnea, diaphoresis, orthostatic symptoms. No abdominal or perianal pain MD complaint: blood streaked stool Onset/Timin -: days(s) Quality: painless Consistency: intermittent Improves with: none Worsens with: none Context: blood thinners Associated Symptoms: denies other symptoms - Related Data Home Medications Medication Instructions Recorded Confirmed Donepezil [Aricept] 10 mg PO HS 02/28/21 05/20/23 Gabapentin [Neurontin] 300 mg PO HS 02/28/21 05/20/23 Pravastatin Sodium [Pravachol] 10 mg PO HS 02/28/21 05/20/23 Tamsulosin HCl [Flomax] 0.4 mg PO DAILY 02/28/21 05/20/23 Warfarin [Coumadin] 5 mg PO SUWE 02/28/21 05/20/23 Warfarin [Coumadin] 10 mg PO MOTUTHFRSA 02/28/21 05/20/23 amLODIPine BESYLATE/BENAZEPRIL 1 cap PO DAILY 02/28/21 05/20/23 [amLODIPine BESYLATE/BENAZEPRIL 10-20 MG] Calcium (Unk) 1 tab PO DAILY 05/20/23 05/20/23 Calcium Carbonate [Tums] 500 mg PO TID 05/20/23 05/20/23 Enzalutamide [Xtandi] 160 mg PO HS 05/20/23 05/20/23 Multivitamins, Thera [Multivitamin 1 tab PO DAILY 05/20/23 05/20/23 (formulary)] Spironolactone 25 mg PO DAILY 05/20/23 05/20/23 Vit D(Unk) 1 tab PO DAILY 05/20/23 05/20/23 lisinopriL [Zestril] 20 mg PO DAILY 05/20/23 05/20/23 Allergies Allergy/AdvReac Type Severity Reaction Status Date / Time No Known Allergies Allergy Verified 05/20/23 11:55 Review of Systems ROS Statement: Those systems with pertinent positive or pertinent negative responses have been documented in the HPI. ROS Other: All systems not noted in ROS Statement are negative. Constitutional: Denies: fever, chills Respiratory: Denies: cough, dyspnea Cardiovascular: Denies: chest pain, palpitations, edema Gastrointestinal: Reports: hematochezia. Denies: abdominal pain, nausea, vomiting, constipation, melena Genitourinary: Denies: dysuria, hematuria Musculoskeletal: Denies: back pain Skin: Denies: rash Neurological: Denies: headache, weakness Past Medical History Past Medical History: Cancer, Hyperlipidemia, Hypertension Additional Past Medical History / Comment(s): prostate, cardiomyopathy, basal cell carcinoma History of Any Multi-Drug Resistant Organisms: None Reported Past Surgical History: Appendectomy Additional Past Surgical History / Comment(s): mitral valve, cochlear implant, diverticulitis, retinal detachment, cataract Past Anesthesia/Blood Transfusion Reactions: No Reported Reaction Past Psychological History: No Psychological Hx Reported Smoking Status: Never smoker Past Alcohol Use History: None Reported Past Drug Use History: None Reported - Past Family History Mother Family Medical History: No Reported History General Exam Limitations: no limitations General appearance: alert, in no apparent distress Head exam: Present: atraumatic, normocephalic Eye exam: Present: normal appearance. Absent: scleral icterus, conjunctival injection Neck exam: Present: normal inspection Respiratory exam: Present: normal lung sounds bilaterally. Absent: respiratory distress, wheezes, rales, rhonchi, stridor Cardiovascular Exam: Present: regular rate, normal rhythm, normal heart sounds. Absent: systolic murmur, diastolic murmur, rubs, gallop GI/Abdominal exam: Present: soft. Absent: distended, tenderness, guarding, rebound, rigid, mass Rectal exam: Present: normal inspection, normal rectal tone, other (There is small amount of maroon blood with stool present). Absent: fecal impaction, hemorrhoids Extremities exam: Present: normal inspection, normal capillary refill. Absent: pedal edema, calf tenderness Back exam: Present: normal inspection. Absent: CVA tenderness (R), CVA tenderness (L) Neurological exam: Present: alert Skin exam: Present: warm, dry, intact, normal color. Absent: rash Course Vital Signs 05/01/23 05/01/23 05/01/23 17:55 19:00 19:30 Temperature 98.4 F Pulse Rate 74 97 86 Respiratory 18 16 18 Rate Blood Pressure 158/85 155/99 162/105 O2 Sat by Pulse 97 94 L 95 Oximetry 05/01/23 05/01/23 05/02/23 20:30 22:00 01:34 Temperature Pulse Rate 98 98 98 Respiratory 17 18 18 Rate Blood Pressure 156/106 136/99 142/86 O2 Sat by Pulse 95 97 99 Oximetry Medical Decision Making - Medical Decision Making Patient is a 87-year-old man with gastrointestinal bleeding. The patient's case discussed with surgery on-call and they are not able to act as science consultant. Medicine requests transfer. I discussed with the patient and he requests transf er to [facility] as closest facility. Case discussed with the transfer team there, will accept transfer. Was pt. sent in by a medical professional or institution (, PA, RECEIVING CLERK, urgent care, hospital, or halfway...) When possible be specific @ -[No] Did you speak to anyone other than the patient for history (EMS, parent, family, police, friend...)? What history was obtained from this source @ -[No] Did you review nursing and triage notes (agree or disagree)? Why? @ -[I reviewed and agree with nursing and triage notes] Were old charts reviewed (outside hosp., previous admission, EMS record, old EKG, old radiological studies, urgent care reports/EKG's, halfway records)? Report findings @ -[No old charts were reviewed] Differential Diagnosis (chest pain, altered mental status, abdominal pain women, abdominal pain men, vaginal bleeding, weakness, fever, dyspnea, syncope, headache, dizziness, GI bleed, back pain, seizure, CVA, palpatations, mental health, musculoskeletal)? @ -[Differential GI Bleed: Esophageal varices, aortoenteric fistula, Shabana-Meléndez, gastritis, peptic ulcer disease, diverticulosis, inflammatory bowel disease, hemorrhoids, fissure, colitis, malignancy, Meckels diverticulum, this is not meant to be an all- inclusive list. EKG interpreted by me (3pts min.). @ -[As above] X-rays interpreted by me (1pt min.). @ -[None done] CT interpreted by me (1pt min.). @ -[None done] U/S interpreted by me (1pt. min.). @ -[None done] What testing was considered but not performed or refused? (CT, X-rays, U/S, labs)? Why? @ -[None] What meds were considered but not given or refused? Why? @ -[None] Did you discuss the management of the patient with other professionals (professionals i.e. , PA, RECEIVING CLERK, lab, RT, psych nurse, social media marketer, supervisor bakery sanitation, teacher, senior grants officer, correctional casework specialist)? Give summary @ -[As mentioned above case was discussed with surgery on-call, with the internal medicine physician internal controls analyst, and then with the physicians at the receiving hospital who accepted transfer Was smoking cessation discussed for >3mins.? @ -[No] Was critical care preformed (if so, how long)? @ -[No] Were there social determinants of health that impacted care today? How? (Homelessness, low income, unemployed, alcoholism, drug addiction, transportation, low edu. Level, literacy, decrease access to med. care, residential, rehab)? @ -[No] Was there de-escalation of care discussed even if they declined (Discuss DNR or withdrawal of care, Hospice)? DNR status @ -[No] What co-morbidities impacted this encounter? (DM, HTN, Smoking, COPD, CAD, Cancer, CVA, ARF, Chemo, Hep., AIDS, mental health diagnosis, sleep apnea, morbid obesity)? @ -[Atrial fibrillation requiring using anticoagulant Was patient admitted / discharged? Hospital course, mention meds given and route, prescriptions, significant lab abnormalities, going to OR and other pertinent info. @ -[Patient was transferred to Hospital with gastroenterology coverage Undiagnosed new problem with uncertain prognosis? @ -[No] Drug Therapy requiring intensive monitoring for toxicity (Heparin, Nitro, Insulin, Cardizem)? @ -[No] Were any procedures done? @ -[No] Diagnosis/symptom? @ -[Acute GI bleeding Acute, or Chronic, or Acute on Chronic? @ -[Acute Uncomplicated (without systemic symptoms) or Complicated (systemic symptoms)? @ -[Uncomplicated Side effects of treatment? @ -[No] Exacerbation, Progression, or Severe Exacerbation? @ -[No] Poses a threat to life or bodily function? How? (Chest pain, [place], [place], pneumonia, PE, COPD, DKA, ARF, appy, cholecystitis, CVA, Diverticulitis, Homicidal, Suicidal, threat to staff... and all critical care pts) @ -[Yes there is a low risk of worsening GI bleeding with possibility of anemia/exsanguination - Lab Data Result diagrams: 05/01/23 18:33 05/01/23 18:33 Lab Results 05/01/23 05/01/23 05/01/23 Range/Units 18:10 18:20 18:33 WBC 6.9 (3.8-10.6) k/uL RBC 4.03 L (4.30-5.90) m/uL Hgb 13.5 (13.0-17.5) gm/dL Hct 38.7 L (39.0-53.0) % MCV 96.2 (80.0-100.0) fL MCH 33.6 (25.0-35.0) pg MCHC 35.0 (31.0-37.0) g/dL RDW 13.4 (11.5-15.5) % Plt Count 226 (150-450) k/uL MPV 8.1 Neutrophils % 78 % Lymphocytes % 14 % Monocytes % 6 % Eosinophils % 1 % Basophils % 0 % Neutrophils # 5.4 (1.3-7.7) k/uL Lymphocytes # 1.0 (1.0-4.8) k/uL Monocytes # 0.4 (0-1.0) k/uL Eosinophils # 0.1 (0-0.7) k/uL Basophils # 0.0 (0-0.2) k/uL PT (10.0-12.5) sec INR (<1.2) APTT (22.0-30.0) sec Sodium (137-145) mmol/L Potassium (3.5-5.1) mmol/L Chloride (98-107) mmol/L Carbon Dioxide (22-30) mmol/L Anion Gap mmol/L BUN (9-20) mg/dL Creatinine (0.66-1.25) mg/dL Est GFR (CKD-EPI)AfAm (>60 ml/min/1.73 sqM) Est GFR (CKD-EPI)NonAf (>60 ml/min/1.73 sqM) Glucose (74-99) mg/dL Plasma Lactic Acid Rodney (0.7-2.0) mmol/L Calcium (8.4-10.2) mg/dL Total Bilirubin (0.2-1.3) mg/dL AST (17-59) U/L ALT (4-49) U/L Alkaline Phosphatase (38-126) U/L Troponin I (0.000-0.034) ng/mL Total Protein (6.3-8.2) g/dL Albumin (3.5-5.0) g/dL Stool Occult Blood (Negative) Blood Type A Positive Blood Type Confirm A Positive Blood Type Recheck No Previous Record Bld Type Recheck Status CABO Indicated Antibody Screen NEGATIVE Spec Expiration Date 05/04/2023 - 230905/01/23 05/01/23 05/01/23 Range/Units 18:33 18:33 18:33 WBC (3.8-10.6) k/uL RBC (4.30-5.90) m/uL Hgb (13.0-17.5) gm/dL Hct (39.0-53.0) % MCV (80.0-100.0) fL MCH (25.0-35.0) pg MCHC (31.0-37.0) g/dL RDW (11.5-15.5) % Plt Count (150-450) k/uL MPV Neutrophils % % Lymphocytes % % Monocytes % % Eosinophils % % Basophils % % Neutrophils # (1.3-7.7) k/uL Lymphocytes # (1.0-4.8) k/uL Monocytes # (0-1.0) k/uL Eosinophils # (0-0.7) k/uL Basophils # (0-0.2) k/uL PT 21.8 H (10.0-12.5) sec INR 2.2 H (<1.2) APTT 29.1 (22.0-30.0) sec Sodium 143 (137-145) mmol/L Potassium 4.0 (3.5-5.1) mmol/L Chloride 111 H (98-107) mmol/L Carbon Dioxide 20 L (22-30) mmol/L Anion Gap 12 mmol/L BUN 15 (9-20) mg/dL Creatinine 0.72 (0.66-1.25) mg/dL Est GFR (CKD-EPI)AfAm >90 (>60 ml/min/1.73 sqM) Est GFR (CKD-EPI)NonAf 85 (>60 ml/min/1.73 sqM) Glucose 125 H (74-99) mg/dL Plasma Lactic Acid Rodney (0.7-2.0) mmol/L Calcium 9.1 (8.4-10.2) mg/dL Total Bilirubin 1.2 (0.2-1.3) mg/dL AST 31 (17-59) U/L ALT 14 (4-49) U/L Alkaline Phosphatase 92 (38-126) U/L Troponin I 0.034 (0.000-0.034) ng/mL Total Protein 6.4 (6.3-8.2) g/dL Albumin 3.7 (3.5-5.0) g/dL Stool Occult Blood (Negative) Blood Type Blood Type Confirm Blood Type Recheck Bld Type Recheck Status Antibody Screen Spec Expiration Date 05/01/23 05/01/23 Range/Units 18:33 18:33 WBC (3.8-10.6) k/uL RBC (4.30-5.90) m/uL Hgb (13.0-17.5) gm/dL Hct (39.0-53.0) % MCV (80.0-100.0) fL MCH (25.0-35.0) pg MCHC (31.0-37.0) g/dL RDW (11.5-15.5) % Plt Count (150-450) k/uL MPV Neutrophils % % Lymphocytes % % Monocytes % % Eosinophils % % Basophils % % Neutrophils # (1.3-7.7) k/uL Lymphocytes # (1.0-4.8) k/uL Monocytes # (0-1.0) k/uL Eosinophils # (0-0.7) k/uL Basophils # (0-0.2) k/uL PT (10.0-12.5) sec INR (<1.2) APTT (22.0-30.0) sec Sodium (137-145) mmol/L Potassium (3.5-5.1) mmol/L Chloride (98-107) mmol/L Carbon Dioxide (22-30) mmol/L Anion Gap mmol/L BUN (9-20) mg/dL Creatinine (0.66-1.25) mg/dL Est GFR (CKD-EPI)AfAm (>60 ml/min/1.73 sqM) Est GFR (CKD-EPI)NonAf (>60 ml/min/1.73 sqM) Glucose (74-99) mg/dL Plasma Lactic Acid Rodney 1.4 (0.7-2.0) mmol/L Calcium (8.4-10.2) mg/dL Total Bilirubin (0.2-1.3) mg/dL AST (17-59) U/L ALT (4-49) U/L Alkaline Phosphatase (38-126) U/L Troponin I (0.000-0.034) ng/mL Total Protein (6.3-8.2) g/dL Albumin (3.5-5.0) g/dL Stool Occult Blood Positive (Negative) Blood Type Blood Type Confirm Blood Type Recheck Bld Type Recheck Status Antibody Screen Spec Expiration Date Disposition Clinical Impression: GI bleeding Disposition: OTHER INSTITUTION NOT DEFINED Condition: Fair Instructions (If sedation given, give patient instructions): Gastrointestinal Bleeding (ED) Is patient prescribed a controlled substance at d/c from ED?: No Referrals: Marie Blevins MD [Primary Care Provider] - 1-2 days - Out of Hospital Transfer - Req. Specs Out of Hospital Transfer - Requested Specifics: Other Emergency Center
[2023-05-01 19:09] LABS: AST 31 U/L (17-59); Alkaline Phosphatase 92 U/L (38-126)
[2023-05-01 22:33] VITALS: PULSE 98
[2023-05-02 01:46] VITALS: BP 142/86
== END 2023-05-02 01:35 | disposition other institution (70) ==
LOC: EC 17:07
DX: K92.2 Gastrointestinal hemorrhage, unspecified (principal); E78.5 Hyperlipidemia, unspecified; I10 Essential (primary) hypertension; I48.91 Unspecified atrial fibrillation; Z79.01 Long term (current) use of anticoagulants; Z79.899 Other long term (current) drug therapy
CPT/HCPCS: 36415; 80053; 82272; 83605; 84484; 85025; 85610; 85730; 86850; 86900; 86901; 99285

== ENCOUNTER → 2023-05-27 | Day surgery (SDC) | payer MEDICARE, OTHER ==
[~2023-05-27] MED LIST changes: +ALPRAZolam 0.25 MG TAB PO PRN; +ALPRAZolam 0.5 MG TAB PO PRN; +ASPIRIN 325 MG TAB PO STA; +ATORVASTATIN 80 MG TAB PO STA; +HEPARIN SODIUM 1,000 UN/ML (10ML VL) IVP ONE; +HEPARIN SODIUM 1,000 UN/ML (10ML VL) ONE; +HEPARIN SODIUM,PORCINE (1 ML) 2,500 UNIT in SODIUM CHLORIDE 0.9% 250 ML IRRIGATION PRN; +HEPARIN SODIUM,PORCINE 10,000 UNIT in SODIUM CHLORIDE 0.9% 1,000 ML IRRIGATION PRN; +IOPAMIDOL-370 100ML BTL INJ ONE; -LACTATED RINGERS 1,000 ML IV SCH; -LIDOCAINE 1% (10MG/ML) FOR IV START INTRADERMA PRN; +LIDOCAINE 1% INJ 10MG/ML (20 ML MDV) SQ ONE; +MIDAZOLAM 2 MG/2 ML VIAL IVP ONE; +NITROGLYCERIN SL TABS 0.4 MG TAB SUBLINGUAL PRN; +SODIUM CHLORIDE 0.9% 1,000 ML IV ONE; +SODIUM CHLORIDE 0.9% 1,000 ML in EMPTY BAG 1 BAG IV SCH; +VERAPAMIL SYRINGE (5 MG/10 ML) INTRAARTER ONE; +fentaNYL (PF) 50 MCG/ML 2 ML AMP IVP ONE; +fentaNYL (PF) 50 MCG/ML 2 ML AMP ONE
[2023-05-27 12:38] VITALS: RESP 16; TEMP 98.1
[2023-05-27 12:52] LABS: INR 1.2 (<1.2); Prothrombin Time 12.4 sec (10.0-12.5)
--- NOTE | 2023-05-27 14:07 | P.CARDCATH ---
Description of Procedure: PROCEDURES PERFORMED: Left heart catheterization, bilateral coronary angiography, ultrasound guided arterial access, left ventriculogram INDICATION: Cardiomyopathy CONSENT:I have discussed the risks, benefits and alternative therapies for the above-mentioned procedure and for both sedation/analgesia as well as necessary blood product administration, if indicated, as they pertain to this patient. The patient has indicated understanding and acceptance of the risks and procedures discussed. PROCEDURE: After the risks, benefits and alternatives of the above mentioned procedure explained in detail with the patient, informed consent was obtained. Patient was taken to the catheterization lab and prepped and draped in usual fashion. Ultrasound guidance was used to assess for arterial access. 1% lidocaine was used to anesthetize the right radial artery. A 6-[place] sheath was placed in the right radial artery using modified Seldinger technique and ultrasound guidance. Left coronary angiography was performed with a 5-[place] JL 3.5 catheter and right coronary angiography was performed with a 5-[place] AR2 catheter in various views. A 5-[place] AR2 catheter was inserted into the left ventricle and pressure measurements were obtained. A left ventriculogram was performed with a power injection in the PORRAS projection with a 6-[place] pigtail catheter. The right radial sheath was removed and a TR band was placed with hemostasis achieved. The patient tolerated the procedure well. Patient was transported back to the post catheterization holding area in stable condition. Conscious Sedation: Patient was monitored under the direct supervision of myself for conscious sedation using Versed and fentanyl for a total duration of 18 minutes HEMODYNAMICS: Aorta: 125/60 LV: 123/LVEDP 9 Left ventriculogram: Left ventricular ejection fraction 25-30% with global hypokinesis SELECTIVE CORONARY ARTERIOGRAPHY: LEFT MAIN: The left main is a large caliber vessel which bifurcates into the LAD and circumflex. There is no significant stenosis. LEFT ANTERIOR DESCENDING CORONARY ARTERY: LAD is a large caliber vessel which w raps around to the apex. There are mild luminal irregularities of the proximal and mid LAD. The apical LAD is a small caliber vessel and has a distal 90% stenosis. LEFT CIRCUMFLEX CORONARY ARTERY: Left circumflex is a moderate caliber vessel with mild luminal irregularities. RIGHT CORONARY ARTERY: The right coronary artery is a large caliber vessel which gives off a PDA and PLV branch and is the dominant vessel. There is no significant stenosis. FINAL IMPRESSION: 1. Relatively normal coronary arteries other than a small caliber apical LAD 90% stenosis. 2. Normal left sided filling pressures 3. 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 Aggressive risk factor modification per most recent ACC/AHA guidelines. 2. Given LAD is a small caliber vessel and not have any significant angina-type symptoms and does not explain his cardiomyopathy, would treat apical LAD medically.
[2023-05-27 18:31] VITALS: BP 152/78; PULSE 62
== END ==
LOC: CATHCVL 11:49
PROVIDERS: ATTEND Internal Medicine
DX: I48.91 Unspecified atrial fibrillation (principal); I11.0 Hypertensive heart disease with heart failure; I50.9 Heart failure, unspecified; I07.1 Rheumatic tricuspid insufficiency; E78.5 Hyperlipidemia, unspecified; F17.210 Nicotine dependence, cigarettes, uncomplicated
CPT/HCPCS: 93458; 76937; 85610; C1769; J2250; J2001; J3010; J1644; Q9967

== ENCOUNTER → 2023-06-30 | Outpatient (CLI) | payer MEDICARE, OTHER ==
[2023-07-01 02:26] LABS: HCT 32.4 % (39.6-50.0); HGB 10.2 g/dL (13.0-17.0); MCH 30.8 pg (27.0-32.0); MCHC 31.5 g/dL (32.0-37.0); MCV 97.9 FL (80.0-97.0); Mean Platelet Volume 10.3 FL (9.5-12.2); NRBC Per 100 WBC 0 X 10*3/uL (0.00-0.01); Platelet Count 233 X 10*3/uL (140-440); RBC 3.31 X 10*6/uL (4.40-5.60); RDW 14.1 % (11.5-14.5); WBC 6.53 X 10*3/uL (4.50-10.00)
[2023-07-01 02:48] LABS: Albumin 3.8 g/dL (3.8-4.9); BUN/Creat Ratio 27.75 Ratio (12.00-20.00); Blood Urea Nitrogen 22.2 mg/dL (9.0-27.0); Calcium 9.2 mg/dL (8.7-10.3); Chloride 108 mmol/L (96-109); Glucose 132 mg/dL (70-110); Phosphorus 3.1 mg/dL (2.4-5.1); Potassium 4.3 mmol/L (3.5-5.5); Sodium 142 mmol/L (135-145)
== END | disposition home or self-care (01) ==
LOC: LABWHC1 16:18
PROVIDERS: ATTEND Internal Medicine
DX: I50.9 Heart failure, unspecified (principal); D64.9 Anemia, unspecified
CPT/HCPCS: 36415; 80069; 85027

== ENCOUNTER → 2023-07-21 | Outpatient (CLI) | payer MEDICARE, OTHER ==
[2023-07-22 02:41] LABS: HCT 33.6 % (39.6-50.0); HGB 10.2 g/dL (13.0-17.0); MCH 28.7 pg (27.0-32.0); MCHC 30.4 g/dL (32.0-37.0); MCV 94.6 FL (80.0-97.0); Mean Platelet Volume 10.1 FL (9.5-12.2); NRBC Per 100 WBC 0 X 10*3/uL (0.00-0.01); Platelet Count 229 X 10*3/uL (140-440); RBC 3.55 X 10*6/uL (4.40-5.60); RDW 14.1 % (11.5-14.5); WBC 8.53 X 10*3/uL (4.50-10.00)
[2023-07-22 02:56] LABS: Albumin 3.6 g/dL (3.8-4.9); BUN/Creat Ratio 29.75 Ratio (12.00-20.00); Blood Urea Nitrogen 23.8 mg/dL (9.0-27.0); Calcium 9.2 mg/dL (8.7-10.3); Chloride 106 mmol/L (96-109); Glucose 133 mg/dL (70-110); Phosphorus 3.9 mg/dL (2.4-5.1); Potassium 4.3 mmol/L (3.5-5.5); Sodium 140 mmol/L (135-145)
== END | disposition home or self-care (01) ==
LOC: LABWHC1 15:27
PROVIDERS: ATTEND Internal Medicine
DX: D64.9 Anemia, unspecified (principal); R06.02 Shortness of breath
CPT/HCPCS: 36415; 80069; 85027